=== PATIENT | female | born 1975 | race Two or more races ===

== ENCOUNTER 2023-05-15 19:39 | Emergency (ER) | payer MEDICAID, OTHER ==
[~2023-05-15] VITALS: Ht 165.1 cm; Wt 69.0 kg
[2023-05-15] MEDS ORDERED: IBUP-1456 PO (23:09)
[2023-05-15] MEDS ORDERED: CEPH500C PO (23:09)
[2023-05-15] MEDS ORDERED: LIDOCAINE 1% HCL (LOCAL ANESTH.) INJ 20ML MDV ID ONE (23:15)
[2023-05-15] MEDS ORDERED: TETANUS-DIPTH-ACEL PERTUSSIS 0.5ML SYR Tdap IM ONE (23:15)
[2023-05-16 00:12] VITALS: BP 104/63
== END 2023-05-16 00:15 | disposition home or self-care (01) ==
LOC: EDSEX 19:39 → ER 19:39
DX: S01.511A Laceration without foreign body of lip, initial encounter (principal); Z90.49 Acquired absence of other specified parts of digestive tract; Z88.6 Allergy status to analgesic agent; Z88.8 Allergy status to other drugs, medicaments and biological substances; W18.09XA Striking against other object with subsequent fall, initial encounter; Y93.89 Activity, other specified; Y92.89 Other specified places as the place of occurrence of the external cause; Y99.8 Other external cause status
CPT/HCPCS: 12011; 90471; 90715; 99283; J2001